=== PATIENT | male | born 2000 | race African-American/Black ===

== ENCOUNTER 2024-12-03 17:12 | Emergency (ER) | payer BC ==
[~2024-12-03] VITALS: Ht 185.4 cm; Wt 100.0 kg
[2024-12-03 17:16] VITALS: O2SAT 96
[2024-12-03 17:19] VITALS: BP 117/81; PULSE 74; RESP 16; TEMP 97.8; O2SAT 100
[2024-12-03] MEDS ORDERED: CYCL10TA21 MT (19:19)
== END 2024-12-03 20:04 | disposition home or self-care (01) ==
LOC: ER 17:12
DX: M54.2 Cervicalgia (principal); M25.561 Pain in right knee; Z98.890 Other specified postprocedural states; V89.2XXA Person injured in unspecified motor-vehicle accident, traffic, initial encounter; Y93.89 Activity, other specified; Y92.89 Other specified places as the place of occurrence of the external cause; Y99.8 Other external cause status
CPT/HCPCS: 99283